=== PATIENT | female | born 1950 | race Hispanic/Latino ===

== ENCOUNTER 2018-06-19 07:24 | Day surgery (SDC) | payer OTHER, MEDICARE ==
[2018-06-19 07:38] VITALS: BMI 24.7
[2018-06-19] MEDS ORDERED: Propofol 10 mg/ml Inj (20 ML) ONE (09:28)
--- NOTE | 2018-06-19 09:34 | CP.SDSHP ---
Same Day Surgery H & P - History Proposed Procedure: colonoscopy Pre-Op Diagnosis: Rectal bleeding. Family h/o colon cancer - Previous Medical/Surgical History Cardiac: Hypertension, Other (hyperlipiedfemia) Previous Surgical History: Pyloroplasty. x3 - Allergies Allergies: Allergies No Known Allergies Allergy (Verified 01/05/16 09:59) - Physical Exam Vital Signs: Vital Signs 06/19/18 07:40 Temperature 97 F L Pulse Rate 69 Respiratory 16 Rate Blood Pressure 155/71 H O2 Sat by Pulse 100 Oximetry Mental Status: Alert & Oriented x3 Neuro: WNL Heart: WNL Lungs: WNL GI: WNL - Impression Impression: rectal bleeding. family h/o colon cancer Pt. Evaluated Today:Candidate for Anesthesia & Procedure: Yes - Date & Time Date: 06/19/18 Time: 09:34 Short Stay Discharge - Short Stay Discharge Admitting Diagnosis/Reason for Visit: MELENA / CONSTIPATION Disposition: HOME/ ROUTINE
[2018-06-19] MEDS ORDERED: Midazolam 2 MG/2 ML VIAL ONE (09:41)
[2018-06-19 10:16] VITALS: TEMP 97.6
[2018-06-19 10:54] VITALS: O2SAT 97
[2018-06-19 11:22] VITALS: BP 115/78; PULSE 67; RESP 14
== END 2018-06-19 11:10 | disposition home or self-care (01) ==
LOC: C.ENDO 07:24
PROVIDERS: ATTEND Internal Medicine Gastroenterology
DX: K57.30 Diverticulosis of large intestine without perforation or abscess without bleeding (principal); K64.1 Second degree hemorrhoids; Z80.0 Family history of malignant neoplasm of digestive organs; K62.5 Hemorrhage of anus and rectum; I10 Essential (primary) hypertension; E78.5 Hyperlipidemia, unspecified
CPT/HCPCS: 45378; J2250; J2704; J3010